=== PATIENT | female | born 1955 | race Caucasian/White ===

== ENCOUNTER 2017-12-04 09:56 | Day surgery (SDC) | payer OTHER ==
[~2017-12-04] VITALS: Ht 157.5 cm; Wt 137.7 kg
[~2017-12-04 09:56] MED LIST: ADVIL,NUPRIN,M200 MG PO; CELEXA10 MG PO; CYANOCOBAL1000 MCG/2 IM; HYZAAR 100-21 TABLET PO; LIPITOR10 MG PO; LO-DOSE ASPIRIN81 M1 PO; NORVASC10 MG PO; TOPROL XL50 MG PO; WELLBUTRIN XL150 MG PO
== END 2017-12-04 12:44 | disposition home or self-care (01) ==
LOC: PAIN 09:56 → SDC 10:30 → PAIN 10:30
DX: M47.816 Spondylosis without myelopathy or radiculopathy, lumbar region (principal); M54.5 Low back pain; G89.29 Other chronic pain; M51.36 Other intervertebral disc degeneration, lumbar region; E66.9 Obesity, unspecified; Z68.43 Body mass index [BMI] 50.0-59.9, adult; R73.03 Prediabetes; I10 Essential (primary) hypertension; F41.9 Anxiety disorder, unspecified; Z79.82 Long term (current) use of aspirin; Z79.891 Long term (current) use of opiate analgesic; Z87.891 Personal history of nicotine dependence
CPT/HCPCS: J1030; J2250; J3010; S0020

== ENCOUNTER 2017-12-11 09:38 | Day surgery (SDC) | payer OTHER ==
[~2017-12-11] VITALS: Ht 157.5 cm; Wt 137.6 kg
== END 2017-12-11 11:20 | disposition home or self-care (01) ==
LOC: PAIN 09:38
DX: M47.816 Spondylosis without myelopathy or radiculopathy, lumbar region (principal); M51.26 Other intervertebral disc displacement, lumbar region; G89.29 Other chronic pain; M17.11 Unilateral primary osteoarthritis, right knee; I10 Essential (primary) hypertension; E66.9 Obesity, unspecified; Z68.43 Body mass index [BMI] 50.0-59.9, adult; R73.03 Prediabetes; F34.1 Dysthymic disorder; E78.5 Hyperlipidemia, unspecified; Z87.891 Personal history of nicotine dependence; Z96.653 Presence of artificial knee joint, bilateral
CPT/HCPCS: J1030; J2250; J3010; S0020

== ENCOUNTER 2018-04-09 11:09 | Day surgery (SDC) | payer OTHER ==
[~2018-04-09] VITALS: Ht 157.5 cm; Wt 138.8 kg
[~2018-04-09 11:09] MED LIST changes: +CYANOCOBALAM1000 MCG PO
== END 2018-04-09 12:35 | disposition home or self-care (01) ==
LOC: PAIN 11:09 → SDC 11:45 → PAIN 12:35
DX: M53.3 Sacrococcygeal disorders, not elsewhere classified (principal); M46.1 Sacroiliitis, not elsewhere classified; M51.36 Other intervertebral disc degeneration, lumbar region; I10 Essential (primary) hypertension; E78.2 Mixed hyperlipidemia; R73.03 Prediabetes; Z79.82 Long term (current) use of aspirin
CPT/HCPCS: J1030; J2250; S0020